=== PATIENT | female | born 2000 | race African-American/Black ===

== ENCOUNTER → 2019-08-14 | Outpatient (CLI) | payer MEDICAID ==
--- NOTE | 2019-08-14 15:51 | RAD ---
EXAM: Obstetrics sonogram. HISTORY: Size and dates discrepancy. TECHNIQUE: Sonographic imaging of a gravid uterus was performed. COMPARISON: None. FINDINGS: There is a single intrauterine fetus in cephalic presentation with a normal heart rate of 130 bpm. The cervix is closed and measures 4.1 cm in length. There is an anterior placenta without evidence of placenta previa. The amniotic fluid index is normal at 17.5 cm. The biparietal diameter is 8.25 cm, corresponding with 33 weeks and 1 day. The head circumference is 30.08 cm, corresponding with 33 weeks and 3 days. The abdominal circumference is 28.86 cm, corresponding with 32 weeks and 6 days. The femoral length is 6.28 cm, corresponding with 30 weeks and 4 days. The estimated gestational age patient combined ultrasound measurements is 33 weeks and 0 days and the estimated due date is 10/02/2019. The estimated weight is 2061 g. IMPRESSION: 1. Single intrauterine fetus with normal heart rate in cephalic presentation with an estimated gestational age based on ultrasound measurements of 33 weeks and 0 days. 2. Note is made that a formal anatomy survey was not performed at the time of this exam. Electronically signed by: Delia Andersen MD (08/14/2019 3:48 PM) [place] [id number]
== END | disposition home or self-care (01) ==
LOC: US 13:56
PROVIDERS: ATTEND Obstetrics & Gynecology
DX: O26.843 Uterine size-date discrepancy, third trimester (principal); Z3A.33 33 weeks gestation of pregnancy
CPT/HCPCS: 76815